=== PATIENT | female | born 1985 | race Caucasian/White ===

== ENCOUNTER 2017-11-17 07:15 | Emergency (ER) | END 2017-11-17 09:42 | disposition home or self-care (01) ==

== ENCOUNTER 2017-12-08 13:22 | Emergency (ER) | END 2017-12-08 15:05 | disposition home or self-care (01) ==

== ENCOUNTER 2017-12-26 06:49 | Emergency (ER) | END 2017-12-26 10:00 | disposition home or self-care (01) ==

== ENCOUNTER 2018-02-07 00:44 | Emergency (ER) | END 2018-02-07 04:10 | disposition home or self-care (01) ==

== ENCOUNTER 2018-07-04 02:45 | Emergency (ER) | payer MEDICAID ==
[~2018-07-04] VITALS: Wt 90.9 kg
[~2018-07-04 02:45] MED LIST: ACET500C5 PO; CIPR500T4 PO; FIORICET PO; METO10TA92 PO; NAPR-985 PO; NITR-58 PO; PREN-93 PO
--- NOTE | 2018-07-04 05:11 | ERD ---
ER Documentation Chief Complaint Chief Complaint right leg swelling x 4 days. denies trauma. states 29 weeks HPI 33yo 29 week F presents with complaint of Right leg swelling x 4 days. Patient denies recent trauma or injury, denies pain to the extremity. Pt denies any known medical conditions. States to be current on all care visits and has been uneventful thus far. Pt denies any recent long distance travel, immobility, chest pain, SOB, dizziness, or trouble ambulating. ROS All systems reviewed and are negative except as per history of present illness. Medications Home Meds Active Scripts Metoclopramide* (Reglan*) 10 Mg Tablet, 10 MG PO Q6 PRN for NAUSEA AND/OR VOMITING, #20 TAB Prov:TANIAILABABAK BLANCHARD 02/07/18 Vit No.124/Iron/FA ( Vitamin Tablet) 1 Each Tablet, 1 EACH PO DAILY, #30 TAB Prov:TANIAILABABAK BLANCHARD 02/07/18 Acetaminophen* (Tylophen*) 500 Mg Capsule, 1 CAP PO Q6H PRN for PAIN AND OR ELEVATED TEMP, #20 CAP Prov:PASILABANBABAK 02/07/18 Vit No.124/Iron/FA ( Vitamin Tablet) 1 Each Tablet, 1 EACH PO DAILY, #30 TAB Prov:BABAK GONZALEZ 12/26/17 Acetaminophen* (Tylophen*) 500 Mg Capsule, 1 CAP PO Q6H PRN for PAIN AND OR ELEVATED TEMP, #20 CAP Prov:TANIAILABABAK BLANCHARD 12/26/17 Nitrofurantoin Monohyd Macrocr* (Macrobid*) 100 Mg Capsr, 100 MG PO BID for 14 Days, CAP Prov:PASILABABAK BLANCHARD 12/26/17 Metoclopramide* (Reglan*) 10 Mg Tablet, 10 MG PO Q6 PRN for NAUSEA AND/OR VOMITING, #12 TAB Prov:KAREEM JACINTO PA-C 12/08/17 Acetaminophen* (Tylophen*) 500 Mg Capsule, 1 CAP PO Q6H PRN for PAIN AND OR ELEVATED TEMP, #30 CAP Prov:KAREEM JACINTO PA-C 12/08/17 Naproxen* (Naprosyn*) 500 Mg Tablet, 500 MG PO BID PRN for PAIN AND/OR INFLAMMATION, #30 TAB Prov:SALOME LOVETT PA-C 11/17/17 Acetamin/Butalbital/Caffeine* (Fioricet*) [id number] Tab, 1 TAB PO Q6H PRN for PAIN, #30 TAB Prov:SALOME LOVETT PA-C 11/17/17 Ciprofloxacin Hcl* (Ciprofloxacin Hcl*) 500 Mg Tablet, 500 MG PO BID for 10 Days, TAB Prov:SALOME LOVETT PA-C 11/17/17 Allergies Allergies: Coded Allergies: No Known Allergy (Unverified , 11/17/17) PMhx/Soc History of Surgery: Yes ( x2) Anesthesia Reaction: No Hx Neurological Disorder: No Hx Respiratory Disorders: No Hx Cardiac Disorders: No Hx Psychiatric Problems: No Hx Miscellaneous Medical Probl: No Hx Alcohol Use: No Hx Substance Use: No Hx Tobacco Use: No Smoking Status: Never smoker Physical Exam Vitals Vital Signs Date Temp Pulse Resp B/P (MAP) Pulse Ox O2 O2 Flow FiO2 Time Delivery Rate 07/04/18 98.1 64 17 106/55 97 Room Air 05:17 (72) 07/04/18 97.3 72 18 105/88 98 02:48 (94) Physical Exam General: alert, oriented X 3, no acute distress, well developed, well nourished, hydration normal Head/Eyes: atraumatic, normocephalic, PERRL, EOMI ENT: moist mucous membranes, normal pharynx Neck: supple/no meningismus, non-tender, full range of motion, no thyromegaly Respiratory: no distress, normal breath sounds, no accessory muscle use Cardio: regular rate and rhythm, normal heart sounds, no murmurs, rubs or gallops. Normal distal pulses. Abdomen: soft, non-tender, no guarding, no rebound, no hepatosplenomegaly. Extremities: Visible edema of the RLE with 2+ pitting. No warmth, no erythema, no calf or popliteal tenderness. Negative javier sign. DP pulse 2+, able to wiggle toes, full ROM of the knee and ankle. Able to bear weight to the affected extremity. Back: full range of motion, painless range of motion Skin: no rash, warm, dry Neurologic: alert, oriented X 3, CN II-XII intact, normal speech, no motor d eficits, no sensory deficits, reflexes equal bilat, normal gait Psychiatric: normal mood, normal affect Result Diagram: 07/04/183 07/04/18 0343 Results 24 hrs Laboratory Tests Test 07/04/18 03:43 White Blood Count 4.1 10^3/ul Red Blood Count 3.42 10^6/ul Hemoglobin 10.1 g/dl Hematocrit 30.3 % Mean Corpuscular Volume 88.6 fl Mean Corpuscular Hemoglobin 29.5 pg Mean Corpuscular Hemoglobin Concent 33.3 g/dl Red Cell Distribution Width 12.6 % Platelet Count 119 10^3/UL Mean Platelet Volume 12.6 fl Immature Granulocytes % 0.200 % Neutrophils % 56.2 % Lymphocytes % 33.6 % Monocytes % 8.3 % Eosinophils % 1.5 % Basophils % 0.2 % Nucleated Red Blood Cells % 0.0 /100WBC Immature Granulocytes # 0.010 10^3/ul Neutrophils # 2.3 10^3/ul Lymphocytes # 1.4 10^3/ul Monocytes # 0.3 10^3/ul Eosinophils # 0.1 10^3/ul Basophils # 0.0 10^3/ul Nucleated Red Blood Cells # 0.0 10^3/ul Prothrombin Time 12.3 Sec Prothrombin Time Ratio 1.0 INR International Normalized Ratio 0.90 Activated Partial Thromboplast Time 26.1 Sec Sodium Level 137 mmol/L Potassium Level 4.0 mmol/L Chloride Level 112 mmol/L Carbon Dioxide Level 21 mmol/L Anion Gap 4 Blood Urea Nitrogen 5 mg/dl Creatinine 0.50 mg/dl Est Glomerular Filtrat Rate mL/min > 60 mL/min Glucose Level 97 mg/dl Calcium Level 8.7 mg/dl Total Bilirubin 0.3 mg/dl Direct Bilirubin 0.00 mg/dl Indirect Bilirubin 0.3 mg/dl Aspartate Amino Transf (AST/SGOT) 20 IU/L Alanine Aminotransferase (ALT/SGPT) 27 IU/L Alkaline Phosphatase 211 IU/L Total Protein 5.7 g/dl Albumin 2.8 g/dl Globulin 2.90 g/dl Albumin/Globulin Ratio 0.96 Procedures/MDM PROCEDURE: US Lower extremity venous. CLINICAL INDICATION: Right lower extremity pain TECHNIQUE: Multiple sonographic images of the right lower extremity deep venous system obtained utilizing grayscale, color-flow, compressive sonography and doppler imaging with augmentation. The images were reviewed on a PACS workstation. COMPARISON: None. FINDINGS: There is normal compressibility and flow within the right common femoral, deep femoral, superficial femoral, posterior tibial, peroneal and popliteal veins. IMPRESSION: No sonographic evidence for deep venous thrombosis. MDM: This is a 29wk Female who presented to ED for evaluation of RLE edema. Patient was seen and examined, triage note and the nursing notes were reviewed. All imaging studies, and laboratory analysis were reviewed by me. VS noted. Patient is well-appearing, in no distress, neurovascularly intact, ambulatory with steady gait. Patient had lower extremity Doppler which was negative for DVT. Labs show no coagulopathy or elevated white count. Low suspici on for cellulitis, fracture, dislocation, Calles's cyst. Patient was reassured and urgent out-patient follow-up with [facility] within next 1-2 days was reinforced. Strict ED return precautions discussed, patient is to return at the onset or development of any new or worrisome symptoms. Patient is stable for discharge home at this time. Departure Diagnosis: Primary Impression: Edema during Trimester: third trimester Qualified Codes: O12.03 - Gestational edema, third trimester Ruled Out: DVT (deep vein thrombosis) in Condition: Stable Patient Instructions: Peripheral Edema, Unilateral Additional Instructions: Follow-up with certified [facility] administrator within next 1-2 days for management of swelling of the extremities during . TIMO JOHNS PA-C Jul 04, 2018 05:11
[2018-07-04 05:17] VITALS: BP 106/55; PULSE 64; RESP 17
== END 2018-07-04 05:17 | disposition home or self-care (01) ==
LOC: FTE 02:45
DX: O12.03 Gestational edema, third trimester (principal); M79.661 Pain in right lower leg; Z3A.29 29 weeks gestation of pregnancy
CPT/HCPCS: 80053; 85025; 85610; 85730; 93971; Z7502

== ENCOUNTER 2018-07-13 03:37 | Emergency (ER) | payer MEDICAID ==
[~2018-07-13] VITALS: Ht 157.5 cm; Wt 97.9 kg
[2018-07-13 03:38] VITALS: BP 121/62; PULSE 77; Ht 157.5 cm; Wt 97.9 kg
--- NOTE | 2018-07-13 04:26 | ERD ---
ER Documentation Chief Complaint Chief Complaint APPROX 8 MONTHS PREG; SOB WITH COUGH X2DAYS HPI 33-year-old female, currently at approximately 34 weeks, presents to the emergency department, complaining of sore throat and cough for 2 days. The patient denies fever, no chills, the cough is productive of yellowish sputum. Otherwise, in regards of her , the patient denies abdominal pain, no vaginal bleeding, refers adequate movements. ROS All systems reviewed and are negative except as per history of present illness. Medications Home Meds Active Scripts Inhaler, Assist Devices (Compact Space Chamber) 1 Each Spacer, EACH MC, #1 Prov:EARNESTINE KNIGHT MD 07/13/18 Cetirizine Hcl* (Zyrtec*) 10 Mg Capsule, 10 MG PO DAILY, #10 TAB.CHEW Prov:EARNESTINE KNIGHT MD 07/13/18 Albuterol Sulfate* (Proair HFA*) 8.5 Gm Hfa.aer.ad, 2 PUFF INH Q4, #1 INHALER Prov:EARNESTINE KNIGHT MD 07/13/18 Amoxicillin* (Amoxicillin*) 500 Mg Cap, 500 MG PO TID for 7 Days, CAP Prov:EARNESTINE KNIGHT MD 07/13/18 Metoclopramide* (Reglan*) 10 Mg Tablet, 10 MG PO Q6 PRN for NAUSEA AND/OR VOMITING, #20 TAB Prov:BABAK GONZALEZ F 02/07/18 Vit No.124/Iron/FA ( Vitamin Tablet) 1 Each Tablet, 1 EACH PO DAILY, #30 TAB Prov:PASILABABAK BLANCHARD F 02/07/18 Acetaminophen* (Tylophen*) 500 Mg Capsule, 1 CAP PO Q6H PRN for PAIN AND OR ELEVATED TEMP, #20 CAP Prov:PASILABANMILENAAR F 02/07/18 Vit No.124/Iron/FA ( Vitamin Tablet) 1 Each Tablet, 1 EACH PO DAILY, #30 TAB Prov:PASILABABAK BLANCHARD F 12/26/17 Acetaminophen* (Tylophen*) 500 Mg Capsule, 1 CAP PO Q6H PRN for PAIN AND OR ELEVATED TEMP, #20 CAP Prov:PASILABABAK BLANCHARD F 12/26/17 Nitrofurantoin Monohyd Macrocr* (Macrobid*) 100 Mg Capsr, 100 MG PO BID for 14 Days, CAP Prov:BABAK GONZALEZ 12/26/17 Metoclopramide* (Reglan*) 10 Mg Tablet, 10 MG PO Q6 PRN for NAUSEA AND/OR VOMITING, #12 TAB Prov:KAREEM JACINTO PA-C 12/08/17 Acetaminophen* (Tylophen*) 500 Mg Capsule, 1 CAP PO Q6H PRN for PAIN AND OR ELEVATED TEMP, #30 CAP Prov:KAREEM JACINTO PA-C 12/08/17 Naproxen* (Naprosyn*) 500 Mg Tablet, 500 MG PO BID PRN for PAIN AND/OR INFLAMMATION, #30 TAB Prov:SALOME LOVETT PA-C 11/17/17 Acetamin/Butalbital/Caffeine* (Fioricet*) [id number] Tab, 1 TAB PO Q6H PRN for PAIN, #30 TAB Prov:SALOME LOVETT PA-C 11/17/17 Ciprofloxacin Hcl* (Ciprofloxacin Hcl*) 500 Mg Tablet, 500 MG PO BID for 10 Days, TAB Prov:SALOME LOVETT PA-C 11/17/17 Allergies Allergies: Coded Allergies: No Known Allergy (Unverified , 07/13/18) PMhx/Soc History of Surgery: Yes ( x2) Anesthesia Reaction: No Hx Neurological Disorder: No Hx Respiratory Disorders: No Hx Cardiac Disorders: No Hx Psychiatric Problems: No Hx Miscellaneous Medical Probl: Yes (GESTATIONAL DM) Hx Alcohol Use: No Hx Substance Use: No Hx Tobacco Use: No Smoking Status: Never smoker FmHx Family History: diabetes Physical Exam Vitals Vital Signs Date Temp Pulse Resp B/P (MAP) Pulse Ox O2 O2 Flow FiO2 Time Delivery Rate 07/13/18 20 98 Room Air 04:59 07/13/18 98.7 77 19 121/62 98 03:38 (81) Physical Exam Const: No acute distress Head: Atraumatic Eyes: Normal Conjunctiva ENT: Normal External Ears, Nose and Mouth. Neck: Full range of motion. No meningismus. Resp: Mild rhonchi to auscultation bilaterally Cardio: Regular rate and rhythm, no murmurs Abd: Soft, uterus gravid, non tender, non distended. Normal bowel sounds Skin: No petechiae or rashes Back: No midline or flank tenderness Ext: No cyanosis, or edema Neur: Awake and alert Psych: Normal Mood and Affect Results 24 hrs Laboratory Tests Test 07/13/18 04:38 Bedside Urine pH (LAB) 6.0 Bedside Urine Protein (LAB) Negative Bedside Urine Glucose (UA) Negative Bedside Urine Ketones (LAB) Negative Bedside Urine Blood Trace-lysed Bedside Urine Nitrite (LAB) Negative Bedside Urine Leukocyte Esterase (L 3+ Procedures/MDM At the time of discharge, patient with nontoxic appearance, vital signs stable, no respiratory distress. Differential diagnosis include but not limited to: upper vs lower respiratory infection bacterial/viral/fungal. Asthma, COPD, pneumonitis, allergies, GERD. Less likely pulmonary embolism, cardiac related or malignancy, but still is a possibility. Physical examination and clinical presentation consistent most likely with viral infection with early superimposed bacterial infection. During the ED course the patient remained stable, no new complaints. Treatment options and clinical impression discussed with the patient who agrees with management. The patient is stable to be treated outpatient and will be discharged home. Some side effects of prescribed medications (headache, rash, nausea, vomiting, diarrhea, interactions with other medications) were reviewed. The patient needs to follow up with the primary care provider in the next 48h. If symptoms persist, worsen or new symptoms develop, then patient should return to the ED immediately. Disclaimer: Inadvertent spelling and grammatical errors are likely due to EHR/dictation software use and do not reflect on the overall quality of patient care. Also, please note that the electronic time recorded on this note does not necessarily reflect the actual time of the patient encounter. Each no patient indicates that he is just to have a like here is going to see her back myself kind Departure Diagnosis: Primary Impression: Cough Additional Impressions: Third trimester at less than 36 weeks UTI (urinary tract infection) Condition: Stable Patient Instructions: Understanding Urinary Tract Infections (UTIs) Additional Instructions: Muchas erika por [facility] para baldwin servicio. Esperamos que en baldwin visita a la neelima de emergencia baldwin problema medico haya sido solucionado y que se sienta mucho mejor. Para estar seguros que baldwin mejoria sigue en proceso, le pedimos el favor de hacer jeffy ronni de seguimiento medico con baldwin doctor primario en los proximos 2-4 oneill. Lleve con usted estos documentos y las medicinas recetadas. Si onesimo sintomas empeoran, NO SE ESPERE, por favor regrese a neelima de emergencia INMEDIATAMENTE. En kedar que usted no tenga un mdico de atencin primaria: Llame al mdico o clnica comunitaria de referencia que aparece abajo ally las horas de consultorio para hacer jeffy ronni para que le vean. CLINICAS: [facility] [phone] [facility] [address] [facility] [phone] [facility] [phone] [place] [id number] [phone] [place] [phone] [facility]. [phone] EARNESTINE MAYBERRY MD Jul 13, 2018 04:26
[2018-07-13] MEDS ORDERED: AMOX500C2 PO (04:36)
[2018-07-13] MEDS ORDERED: CETI10CA PO (04:36)
[2018-07-13] MEDS ORDERED: ALBU8.5H8 INH (04:36)
[2018-07-13] MEDS ORDERED: INHA-3 MC (04:37)
[2018-07-13 04:59] VITALS: RESP 20
== END 2018-07-13 05:01 | disposition home or self-care (01) ==
LOC: FTE 03:37
DX: O26.893 Other specified pregnancy related conditions, third trimester (principal); R05 Cough; O23.43 Unspecified infection of urinary tract in pregnancy, third trimester
CPT/HCPCS: 81003; Z7502; 99283

== ENCOUNTER 2018-07-13 05:10 | Inpatient (IN) | payer MEDICAID ==
[~2018-07-13] VITALS: Ht 157.5 cm; Wt 91.8 kg
[~2018-07-13 05:10] MED LIST changes: +ALBU8.5H8 INH; +AMOX500C2 PO; +CETI10CA PO; +INHA-3 MC
[2018-07-13 05:20] VITALS: BP 115/67; PULSE 73; RESP 17; Ht 157.5 cm; Wt 91.8 kg
[2018-07-13] MEDS ORDERED: NIFEdipine 10 MG CAP PO ONE (06:30)
--- NOTE | 2018-07-13 11:17 | TRIAGE ---
OB Triage Datetime Report Generated by CPN: 07/13/2018 11:17 Datetime: 07/13/2018 10:55 Stage of : Antepartum Labor Evaluation Frequency: 1-10 Monitor Mode: External Duration (sec)2399: 60 Pattern: Normal: <= 5 Contractions in 10 Minutes Resting Tone Redwood: Relaxed Heart Rate FHR Baseline Rate: 150 Variability: Moderate 6-25 bpm Accelerations: 15X15 Decelerations: None Category: Category I Pain Presence: None/Denies Pain Type: N/A Datetime: 07/13/2018 10:03 Stage of : OB Triage Labor Evaluation Frequency: 1-10 Monitor Mode: External Pattern: Normal: <= 5 Contractions in 10 Minutes Resting Tone Redwood: Relaxed Heart Rate FHR Baseline Rate: 145 Monitor Mode: External US Variability: Moderate 6-25 bpm Accelerations: 15X15 Decelerations: None Category: Category I Datetime: 07/13/2018 09:25 Stage of : OB Triage Labor Evaluation Frequency: 1-5 mnutes Monitor Mode: External Pattern: Normal: <= 5 Contractions in 10 Minutes Heart Rate FHR Baseline Rate: 155 Monitor Mode: External US Variability: Moderate 6-25 bpm Accelerations: 15X15 Decelerations: None Category: Category I Pain Presence: None/Denies Pain Type: N/A Datetime: 07/13/2018 09:03 Stage of : OB Triage Labor Evaluation Frequency: irregular Monitor Mode: External Duration (sec)2399: 60 Pattern: Normal: <= 5 Contractions in 10 Minutes Resting Tone Redwood: Relaxed Heart Rate FHR Baseline Rate: 155 Monitor Mode: External US Variability: Moderate 6-25 bpm Accelerations: 15X15 Decelerations: None Category: Category I Pain Presence: None/Denies Pain Type: N/A Datetime: 07/13/2018 08:07 Stage of : OB Triage Labor Evaluation Frequency: Q 5 Monitor Mode: External Duration (sec)2399: 80 Pattern: Normal: <= 5 Contractions in 10 Minutes Resting Tone Redwood: Relaxed Heart Rate FHR Baseline Rate: 145 Monitor Mode: External US Variability: Moderate 6-25 bpm Accelerations: 15X15 Decelerations: None Category: Category I Pain Presence: None/Denies Pain Type: N/A Datetime: 07/13/2018 07:46 Labor Evaluation Frequency: X1 Monitor Mode: External Duration (sec)2399: 80 Pattern: Normal: <= 5 Contractions in 10 Minutes Resting Tone Redwood: Relaxed Heart Rate FHR Baseline Rate: 150 Monitor Mode: External US Variability: Moderate 6-25 bpm Accelerations: 15X15 Decelerations: None Category: Category I Pain Presence: None/Denies Pain Type: N/A Datetime: 07/13/2018 07:34 Stage of : OB Triage Monitor Mode: External Comments: BACK ON MONITOR Pain Presence: None/Denies Pain Type: N/A Datetime: 07/13/2018 06:14 Labor Evaluation Frequency: 2-6 Monitor Mode: External Duration (sec)2399: 50-100 Quality: Mild Resting Tone Redwood: Relaxed Contraction Comments: pt denies feeling any contractions Heart Rate FHR Baseline Rate: 150 Monitor Mode: External US Variability: Moderate 6-25 bpm Accelerations: 15X15 Decelerations: None Category: Category I Pain Assessment Pain Scale: 0 Pain Presence: None/Denies Pain Type: N/A Datetime: 07/13/2018 06:06 Comments: MONITORS TEMPORARILY OFF FOR ULTRASOUND EXAM Datetime: 07/13/2018 05:54 Time of Arrival: 07/13/2018 05:06 EGA: 36.6 Arrived By: Wheelchair Arrived From: Emergency Dept Chief Complaint: Sent from ER cleared for SOB Movement: Present Contractions: Denies/Absent Rupture of Membranes: Denies Vaginal Bleeding: None Vaginal Discharge: Denies Recent Sexual Intercouse: Denies Abdominal Trauma: Not Applicable Patient Complaints: Other Additional Patient Complaints: hip pain since 1899 Time Provider Notified: 07/13/2018 05:06 Provider Notified: HADADIAN Initial Plan: VS, EFM, call OB Datetime: 07/13/2018 05:45 Vaginal Exam Dilatation (cms): 0.5 Station: -4 Exam By: STEPHANIE RN Membrane Status: Intact Vaginal Bleeding: None Cervix, Consistency: Soft Cervix, Position: Posterior Presentation 'A': Unable to Assess Datetime: 07/13/2018 05:20 Assessment Type: Triage Maternal Assessment Level of Consciousness: Fully Conscious DTR's/Clonus: DTRs 2+; No Clonus Headache: Denies Blurred Vision: No Respiratory Effort: Unlabored; Regular Rhythm; Equal Expansion Breath Sounds, Left: Clear and Equal Breath Sounds, Right: Clear and Equal Nausea/Vomiting: Denies RUQ Epigastric Pain: Denies Lower Extremities Edema: None Degree: None Upper Extremities Edema: None Degree: None Facial Edema: None Temperature Route: Oral Fall Risk Assessment History of Falling: (0) No Secondary Diagnosis: (0) No Ambulatory Aid: (0) Bedrest/Nurse Assist IV Therapy: (0) No Gait: (0) Normal/Bedrest/Immobile Mental Status: (0) Oriented to Own Ability Fall Score: 0 Fall Risk Score Definition: No Risk: No action required Pain Assessment Pain Scale: 0 Pain Presence: None/Denies Pain Type: N/A Datetime: 07/13/2018 05:15 Stage of : OB Triage Monitor Mode: External Monitor Mode: External US
[2018-07-13] MEDS ORDERED: HYDROCODONE/APAP (5/325) TAB PO ONE (11:30)
[2018-07-13] MEDS: AMOXICILLIN 500 MG CAP PO SCH ×2 (12:25→18:43)
[2018-07-13] MEDS: LACTATED RINGER'S 1,000 ML IV SCH ×2 (12:25→20:03)
[2018-07-13] MEDS: ALBUTEROL HFA 8 GM INHALER INH SCH ×3 (16:00→23:57)
[2018-07-13] MEDS: GUAIFENESIN/DM 5ML CUP PO PRN (18:43)
[2018-07-13] MEDS ORDERED: DIPHENHYDRAMINE 25 MG CAP PO PRN (21:00)
[2018-07-14] MEDS: GUAIFENESIN/DM 5ML CUP PO PRN ×2 (03:29→12:18)
[2018-07-14] MEDS: LACTATED RINGER'S 1,000 ML IV SCH (04:12)
[2018-07-14] MEDS: ALBUTEROL HFA 8 GM INHALER INH SCH ×4 (04:26→13:00)
[2018-07-14] MEDS: AMOXICILLIN 500 MG CAP PO SCH ×3 (06:00→12:18)
--- NOTE | 2018-07-14 10:32 | HP ---
Date/Time of Note Date/Time of Note DATE: 07/14/18 TIME: 10:21 OB - History Hx of Present Free Text/Dictation Late entry note. Patient seen on 07/13/2018 at 10:00 33 years old 4 para 2-0-1-2 with single intrauterine at 36 weeks and 6 days with TONA of 08/04/2018 seen at the emergency department for shortness of breath and cough, after management there, she referred to labor and delivery for well-being. Patient is complaining of irregular uterine contractions. She states good movement. She denies nausea, vomiting, shortness of breath, chest pain, headache, visual changes, vaginal bleeding or LOF. Risk factors: 1. A1 GDM 2. Marginal cord insertion Chief Complaint: Irregular uterine contractions, cough Estimated Due Date: August 04, 2018 : 4 Para: 2 Spontaneous : 1 Therapeutic : 0 Ultrasounds: Normal mid trimester US Obstetrical Complications: None Medical Complications: None Past Family/Social History * Past Medical, Surgical, Family and Obstetric Histories reviewed from chart. OB Admission Exam Vital Signs Vital Signs Vital Signs Date Temp Pulse Resp B/P (MAP) Pulse Ox O2 O2 Flow FiO2 Time Delivery Rate 07/13/18 98.1 73 17 115/67 Room Air 05:20 (83) Physical Exam Heart: Rhythm Normal Lungs: Clear Abdomen: WNL Extremities: Normal Reflexes: Normal Cervical Dilatation: Fingertip Effacement: 25% Station: -3 Membranes: Intact Heart Rate: 130's Accelerations: Accelerations Present Decelerations: No Decelerations Varibility: Moderate Intensity: Mild Last 72 hourBlood Glucose Bedside Glucose - 72 Hours Test 07/13/18 16:53 07/13/18 20:16 07/13/18 23:59 07/14/18 04:27 Bedside 92 90 85 93 Glucose mg/dL (70-220) mg/dL (70-220) mg/dL (70-220) mg/dL (70-220) Test 07/14/18 08:57 Bedside 85 Glucose mg/dL (70-220) OB Assessment/Plan Other plan: 33 years old 4 para 2-0-1-2 with A1 gestational diabetes, with marginal cord insertion at 36 weeks and 6 days with contractions and 2 previous delivery. She was admitted for close observation - FHR: No sign of metabolic acidosis- Category I - Continuous EFM, toco - CBC, blood type and screen - IVH - Please see the orders 2) A1 GDM: Check fasting blood sugar and 2 hours postprandial. Carb consistent diet 3) Marginal cord insertion: If uterine contraction resolved, continue antepartum testing ABIDA PRITCHETT July 14, 2018 10:32
--- NOTE | 2018-07-14 14:38 | PN ---
Date/Time of Note Date/Time of Note DATE: 07/14/18 TIME: 14:33 OB Subjective Subjective Subjective Patient seen and examined. She states good movement. She denies nausea, vomiting, shortness of breath, chest pain, abdominal pain between contractions, headache, visual changes, vaginal bleeding or LOF. OB Objective Objective Objective VS - Last 72 Hours, by Label Date Temp Pulse Resp B/P (MAP) Pulse Ox O2 O2 Flow FiO2 Time Delivery Rate 07/13/18 98.1 73 17 115/67 Room Air 05:20 (83) General: Patient appears well, alert and oriented, NAD, appropriate mood and affect ABD: gravid, soft, non-tender. Back: No CVA tenderness (B/L) LE: Mild edema. No clubbing, cyanosis, edema, thigh or calf tenderness bilaterally FHT: 135 bpm , moderate variability with acceleration, no deceleration-category I Contractions: None OB Assessment/Plan Other plan: 33 years old 4 para 2-0-1-2 with A1 gestational diabetes, with marginal cord insertion at 36 weeks and 6 days with contractions and 2 previous delivery. She was admitted for close observation. She states good movement. She denies nausea, vomiting, shortness of breath, chest pain, headache, visual changes, vaginal bleeding or LOF. FHR: No sign of metabolic acidosis- Category I. She has no uterine contractions. -Ultrasound performed: Normal DARIUS, BPP 8 out of 8. Symptoms and sign of labor, preeclampsia, kick count discussed with patient, she voiced understanding. All of her questions answered. Patient was discharged home in stable condition with the appropriate discharge instructions provided. I would like patient to have close follow-up with her primary physician or outpatient clinic in 1-2 days or return to triage for worsening symptoms or any other urgent concerns. 2) A1 GDM: Check fasting blood sugar and 2 hours postprandial. All blood sugar in hospital where within normal limits. Carb consistent diet discussed in detail with patient. 3) Marginal cord insertion: I did recommend continue APT ABIDA PRITCHETT July 14, 2018 14:38
--- NOTE | 2018-07-14 14:40 | DS ---
Date/Time of Note Date/Time of Note DATE: 07/14/18 TIME: 14:39 Obstetrical Discharge Record Final Diagnosis Final Diagnosis: Term not delivered Other Final Diagnosis 33 years old 4 para 2-0-1-2 with A1 gestational diabetes, with marginal cord insertion at 37 weeks with contractions and 2 previous delivery admitted for close observation yesterday. Currently denies nausea, vomiting, shortness of breath, chest pain, headache, visual changes, vaginal bleeding or LOF. FHR: No sign of metabolic acidosis- Category I. She has no uterine contractions. Ultrasound performed: Normal DARIUS, BPP 8 out of 8. Symptoms and sign of labor, preeclampsia, kick count discussed with patient, she voiced understanding. All of her questions answered. Patient was discharged home in stable condition with the appropriate discharge instructions provided. I would like patient to have close follow-up with her primary physician or outpatient clinic in 1-2 days or return to triage for worsening symptoms or any other urgent concerns. 2) A1 GDM: Check fasting blood sugar and 2 hours postprandial. All blood sugar in hospital where within normal limits. Carb consistent diet discussed in detail with patient. 3) Marginal cord insertion: I did recommend continue antepartum testing Condition on Discharge Physical Assessment Last Vitals: Vital Signs Date Temp Pulse Resp B/P (MAP) Pulse Ox O2 O2 Flow FiO2 Time Delivery Rate 07/13/18 98.1 73 17 115/67 Room Air 05:20 (83) Voiding: Yes Bowel Movement: Yes Calf Tenderness: No Patient Condition: Stable ABIDA PRITCHETT July 14, 2018 14:40
== END 2018-07-14 14:25 | disposition home or self-care (01) | DRG 833 ==
LOC: L-D 05:10 → OBT 05:10 → L-D 10:30 → OBT 11:25 → L-D 11:29
PROVIDERS: ADMIT Obstetrics & Gynecology; ATTEND Obstetrics & Gynecology
DX: O24.419 Gestational diabetes mellitus in pregnancy, unspecified control (principal); Z3A.36 36 weeks gestation of pregnancy
CPT/HCPCS: 76818; 82962; G0463; J7120

== ENCOUNTER 2018-07-28 05:43 | Inpatient (IN) | payer MEDICAID ==
[~2018-07-28] VITALS: Ht 160 cm; Wt 93.5 kg
[~2018-07-28 05:43] MED LIST changes: -ACET500C5 PO; -ALBU8.5H8 INH; -AMOX500C2 PO; -CETI10CA PO; -CIPR500T4 PO; -FIORICET PO; -METO10TA92 PO; -NAPR-985 PO; -NITR-58 PO; -PREN-93 PO
[2018-07-28 05:54] VITALS: Ht 160 cm; Wt 93.5 kg
[2018-07-28 05:58] VITALS: BP 135/79; PULSE 77; RESP 18
[2018-07-28] MEDS ORDERED: OXYTOCIN 30 UNITS/LR 500 ML IV PRN ×2 (06:00→16:00)
[2018-07-28] MEDS ORDERED: OXYTOCIN 30 UNITS/LR 500 ML IV SCH ×2 (06:00→15:47)
[2018-07-28] MEDS ORDERED: CARBOPROST 250 MCG INJ IM PRN ×2 (06:00→16:00)
[2018-07-28] MEDS ORDERED: CEFAZOLIN 2 GM/50 ML (PMX) 50 ML IVPB SCH (06:00)
[2018-07-28] MEDS ORDERED: METHYLERGONOVINE 0.2 MG INJ IM PRN ×2 (06:00→16:00)
[2018-07-28] MEDS ORDERED: MISOPROSTOL 200 MCG TAB PR PRN ×2 (06:00→16:00)
[2018-07-28] MEDS: LACTATED RINGER'S 1,000 ML IV SCH ×2 (06:26→09:43)
--- NOTE | 2018-07-28 07:18 | PREAC ---
Date/Time of Note Date/Time of Note DATE: 07/28/18 TIME: 07:17 Anesthesia Eval and Record Evaluation Time Pre-Procedure Interview DATE: 07/28/18 TIME: 07:17 Age 33 Sex female NPO: 8 hrs Preoperative diagnosis PREVIOUS C SECTION Planned procedure REPEAT C SECTION Past Medical History Past Medical History: Includes GI: Obesity : : (4), Para: (2) Surgery & Anesthesia Issues No known issue Meds Anticoagulation: No Beta Sterling within 24 hr: No Reason Beta Sterling not given: Pt. not on B-Sterling Active Scripts Inhaler, Assist Devices (Compact Space Chamber) 1 Each Spacer, EACH MC, #1 Prov:EARNESTINE KNIGHT MD 07/13/18 Current Medications Lactated Ringer's 1,000 ml @ 125 mls/hr Q8H IV Last administered on 07/28/18at 06:26; Admin Dose 125 MLS/HR; Start 07/28/18 at 05:55 Cefazolin Sodium/ Dextrose 50 ml @ 100 mls/hr ONCE IVPB ; Start 07/28/18 at 06:00 Oxytocin/Lactated Ringer's 500 ml @ 125 mls/hr POST IV ; Start 07/28/18 at 06:00 Oxytocin/Lactated Ringer's 500 ml @ 0 mls/hr ONCE PRN IV .VAGINAL BLEEDING; Start 07/28/18 at 06:00 Methylergonovine Maleate (Methergine) 0.2 mg ONCE PRN IM .VAGINAL BLEEDING; Start 07/28/18 at 06:00 Carboprost Tromethamine (Hemabate) 250 mcg ONCE PRN IM .VAGINAL BLEEDING; Start 07/28/18 at 06:00 Misoprostol (Cytotec) 1,000 mcg ONCE PRN RI .VAGINAL BLEEDING; Start 07/28/18 at 06:00 Meds reviewed: Yes Allergies Coded Allergies: No Known Allergy (Unverified , 07/13/18) Allergies Reviewed: Yes Labs/Studies Labs Reviewed: Reviewed by anesthesiologist test: N/A Pre-procedure Exam Last vitals Vital Signs Date Temp Pulse Resp B/P (MAP) Pulse Ox O2 O2 Flow FiO2 Time Delivery Rate 07/28/18 98.4 77 18 135/79 Room Air 05:58 (97) Airway: Adequate mouth opening, Adequate thyromental dist Mallampati: Mallampati II Teeth: Normal Lung: Normal Heart: Normal ASA Physical Status ASA physical status: 2 Emergency: None Planned Anesthetic Neuraxial: Spinal Planned Pain Management Sub-arachniod narcotics Pre-operative Attestations Prior to commencing anesthesia and surgery, the patient was re-evaluated, there was verification of: *The patient's identity *The results of appropriate recent lab work and preoperative vital signs *The above evaluation not changing prior to induction *Anesthetic plan, risk benefits, alternative and complications discussed with patient/family; questions answered; patient/family understands, accepts and wishes to proceed. Jh Hodgson M.D. July 28, 2018 07:18
[2018-07-28] MEDS ORDERED: ONDANSETRON 4 MG INJ IV STA (07:28)
[2018-07-28] MEDS ORDERED: CITRIC ACID/NA CITRATE 30 ML CUP PO ONE (07:30)
[2018-07-28] MEDS ORDERED: METOCLOPRAMIDE 10 MG INJ IV ONE (07:30)
[2018-07-28] MEDS ORDERED: FENTAnyl 50 MCG/ML VIAL ONE (08:01)
[2018-07-28] MEDS ORDERED: METOCLOPRAMIDE 10 MG INJ ONE (08:02)
[2018-07-28] MEDS ORDERED: OXYTOCIN 10 UNIT INJ ONE (08:02)
[2018-07-28] MEDS ORDERED: morphine SULFATE/PF (10 MG/10 ML) INJ ONE (08:02)
--- NOTE | 2018-07-28 08:10 | HP ---
Date/Time of Note Date/Time of Note DATE: 07/28/18 TIME: 08:05 OB - History Hx of Present Free Text/Dictation 33 years old G 5 [id number] with gestational diabetes A1 and previous delivery at 39 weeks with a TONA of 08/04/2018 admitted for repeat delivery. She states good movement. She denies nausea, vomiting, shortness of breath, chest pain, headache, visual changes, vaginal bleeding or LOF. Risk factors: -A1 gestational diabetes -Marginal cord insertion -Previous delivery x2 Chief Complaint: Scheduled for repeat delivery Estimated Due Date: August 04, 2018 : 4 Para: 2 Spontaneous : 1 Therapeutic : 0 Care: Good Care Ultrasounds: Normal mid trimester US Obstetrical Complications: Gestational Diabetes Medical Complications: None Past Family/Social History * Past Medical, Surgical, Family and Obstetric Histories reviewed from chart. Blood Type: O+ Rubella: immune RPR/VDRL: Negative GBS Status: Negative HBsAG: Negative OB Admission Exam Vital Signs Vital Signs Vital Signs Date Temp Pulse Resp B/P (MAP) Pulse Ox O2 O2 Flow FiO2 Time Delivery Rate 07/28/18 98.4 77 18 135/79 Room Air 05:58 (97) Physical Exam HEENT: WNL Heart: Rhythm Normal Lungs: Clear Abdomen: WNL Extremities: Normal Membranes: Intact Heart Rate: 140's Accelerations: Accelerations Present Decelerations: No Decelerations Varibility: Marked Contractions on Admission: None Last 72 hours Lab Results CBC & BMP 07/28/18 06:21 OB Assessment/Plan Other plan: 33 years old -0-1-2 with gestational diabetes A1, previous 2 delivery at 39 weeks scheduled for repeat delivery -FHR: No sign of metabolic acidosis- Category I -Continuous EFM, toco -CBC, blood type and screen -Analgesia options with R/B/A discussed in detail with patient -Epidural per patient request -Please see the orders -O+/Rubella: Immune -GBS: Negative The risk of delivery including but not limited to bleeding, infection, injury to other organs (bowel, bladder, ureter, vessels, nerves), injury to fetus, blood transfusion, blood transfusion related infection, risk of anesthesia, adhesion, needs for future , removal of uterus or any other indicated surgery was discussed with the patient and her family. She expressed understanding. All of her questions were answered. She signed the informed consent. PHYSICIAN'S VERIFICATION OF INFORMED CONSENT The patient was counseled regarding the procedure, its indications, risks, potential complications and alternatives and any questions were answered. Consent was obtained. PLANNED PROCEDURE/TREATMENT: delivery with possible using vacuum/forceps and any other indicated surgery PHYSICIAN'S VERIFICATION OF INFORMED CONSENT FOR BLOOD TRANSFUSION: There is a reasonable possibility that blood transfusion will be necessary as a result of the patient's procedure. I have discussed the following with the patient/patient's legal dental sales representative: An explanation of the benefits and risks of the transfusion of blood or blood products and the possible alternatives. All questions have been answered to the patient's satisfaction. INFORMED CONSENT:The patient has been informed of: The nature of the proposed care, treatment, services, medications, interventions or procedures. Potential benefits, risks or side effects, including potential problems related to recuperation. The likelihood of achieving care treatment and service goals. Reasonable alternatives to the proposed care, treatment and service. The relevant risks, benefits and side effects related to alternatives, including the possible results of not receiving care, treatment and services. When indicated, any limitations on the confidentiality of information learned from or about the patient. If appropriate, the risks, benefits and alternatives of the drugs to be used for sedation/analgesia including moderate sedation. If appropriate, patient has been provided information on the risks, benefits and alternatives to the transfusion of blood and/or blood products. If appropriate, patient has been provided information regarding the Shash[employer] Purcell Blood Act. ABIDA PRITCHETT July 28, 2018 08:10
[2018-07-28] MEDS ORDERED: TRIMETHOBENZAMIDE 100 MG/ML VIAL IM PRN ×2 (08:30)
[2018-07-28] MEDS ORDERED: ONDANSETRON 4 MG INJ IV PRN ×2 (08:30)
[2018-07-28] MEDS ORDERED: IPRATROPIUM (NEB) 0.5 MG/2.5 ML AMP HHN PRN (08:30)
[2018-07-28] MEDS ORDERED: ZOLPIDEM 5 MG TAB PO PRN (08:30)
[2018-07-28] MEDS ORDERED: KETOROLAC 30 MG INJ IV PRN (08:30)
[2018-07-28] MEDS ORDERED: DIPHENHYDRAMINE 50 MG INJ IV PRN ×2 (08:30)
[2018-07-28] MEDS ORDERED: FENTAnyl 50 MCG/ML VIAL IV PRN ×3 (08:30)
[2018-07-28] MEDS ORDERED: OXYCODONE/ACETAMINOPHEN (5/325) TAB PO PRN ×2 (08:30)
[2018-07-28] MEDS ORDERED: NALOXONE (0.4 MG/ML) INJ IV PRN (08:30)
[2018-07-28] MEDS ORDERED: LABETALOL HCL 20MG INJ IV PRN (08:30)
[2018-07-28] MEDS ORDERED: ALBUTEROL 0.083% (NEB) 2.5 MG/3 ML AMP HHN PRN (08:30)
[2018-07-28] MEDS ORDERED: NALBUPHINE HCL (10 MG/1 ML) INJ IV PRN (08:30)
[2018-07-28] MEDS ORDERED: MIDAZOLAM 1 MG/ML 2 ML INJ IV PRN (08:30)
[2018-07-28] MEDS ORDERED: morphine 2 MG INJ IV PRN ×2 (08:30)
[2018-07-28] MEDS ORDERED: hydrALAzine 20 MG INJ IV PRN (08:30)
[2018-07-28] MEDS ORDERED: EPHEDrine 25 MG/5 ML SYG IV PRN (08:30)
[2018-07-28] MEDS ORDERED: MEPERIDINE 25 MG INJ IV PRN (08:30)
[2018-07-28] MEDS ORDERED: HYDROmorphONE 1 MG/5 ML IV SYRINGE IV PRN ×3 (08:30)
--- NOTE | 2018-07-28 10:51 | OPR ---
Operative Report Planned Procedure Procedure date July 28, 2018 Procedure(s) Repeat low transverse delivery Performed by see signature line Aircraft Instrument Mechanic: REJI TERAN MD Anesthesiologist: Jh Hodgson M.D. Pre-procedure diagnosis 33 years old with gestational diabetes A1 and two previous delivery at 39 weeks desires repeat delivery [id number] Anesthesia Type: [id number] spinal Post-Procedure Post-procedure diagnosis 1. Single intrauterine at 39 weeks 2. Two previous delivery 3. A1 gestational diabetes 4. 5 cm window at the lower uterine segment. Findings 1. Normal uterus with 5 cm window at the lower uterine segment. Normal fallopian tubes and ovaries 2. Viable male in cephalic presentation. 9 at one minute and 9 in 5 minutes. Weight: 8 pounds 2 ounces. Time of delivery: 08:30 3. Placenta with three vessel cord 4. Amniotic fluid - Clear Estimated Blood Loss: 500 - 600 mls Specimen(s) none Grafts/Implant(s) none Complication(s) none Pt Condition post procedure: stable Disposition: PACU Procedure Description INDICATION AND HISTORY: A 33 years old with gestational diabetes A1 and two previous delivery at 39 weeks desires repeat delivery. The risk of delivery including but not limited to bleeding, infection, injury to other organs (bowel, bladder, ureter, vessels, nerves), injury to fetus, blood transfusion, blood transfusion related infection, risk of anesthesia, adhesion, needs for future , removal of uterus or any other indicated surgery was discussed with the patient and her family. She expressed understanding. All of her questions were answered. She signed the informed consent. DESCRIPTION OF OPERATION: The patient was taken to the operating room, where she was identified and the procedure was verified. The patient received two gram of Ancef 30 minutes prior to surgery. Spinal anesthesia was placed. The patient placed in the dorsal supine position with a left tilt. The heart rate was 134 bpm. The patient was then prepped and draped in the normal sterile fashion. A Pfannenstiel skin incision was made and carried down to the fascia with knife. The fascia was incised in the midline and the fascial incision was carried laterally with Hernandez scissors. The superior portion of the fascial incision was then grasped with Danish clamps and tented up and dissected off the underlying rectus muscle with sharp dissection. The lower portion of the fascial incision was then made in a similar fashion. The rectus muscle was and the peritoneum was entered. The peritoneal incision was then stretched and a bladder blade was inserted. The utero-vesical peritoneal reflection was incised transversely and the bladder flap was reflected inferiorly. As noted above there was 5 cm window on lower uterine segment. Then, an incision was made above the window in the lower uterine segment in a transverse fashion with a knife and extended bluntly. The was delivered by vacuum to assist delivery of head, atraumatically in cephalic presentation with the above findings. The umbilical cord was clamped and cut. The neonatology resuscitation team was present and the baby was handed to them. A cord blood sample was obtained for further evaluation. The placenta and membrane, which appeared normal were Removed. The uterus was exteriorized and cleared of all clot and debris. The uterus was then closed in a two layer fashion with 0- Monocryl. At the time of closure, hemostasis was noted. The gutters were irrigated. The peritoneum was reapproximated with 3-0 Vicryl. The muscle was reapproximated with 3-0 Vicryl. The fascia was approximated with 0-Vicryl in a running fashion. The subcutaneous tissue was re approximated with 3-0 vicryl. The skin was closed with 4-0 Monocryl. All instruments, sponges and needle counts were correct x3. The patient tolerated the procedure well. She transferred to the recovery room in stable condition. . ABIDA PRITCHETT July 28, 2018 10:49
--- NOTE | 2018-07-28 11:20 | PAC ---
Date/Time of Note Date/Time of Note DATE: 07/28/18 TIME: 11:20 Post-Anesthesia Notes Post-Anesthesia Note Last documented vital signs Vital Signs Date Temp Pulse Resp B/P (MAP) Pulse Ox O2 O2 Flow FiO2 Time Delivery Rate 07/28/18 98.4 77 18 135/79 Room Air 05:58 (97) Activity: WNL Respiratory function: WNL Cardiovascular function: WNL Mental status: Baseline Pain reasonably controlled: Yes Hydration appropriate: Yes Nausea/Vomiting absent: Yes Jh Hodgson M.D. July 28, 2018 11:20
[2018-07-28 15:45] VITALS: BP 135/75; PULSE 65; RESP 20
[2018-07-28] MEDS: DEXTROSE 5%-LR 1,000 ML IV SCH ×2 (15:47→20:59)
[2018-07-28] MEDS ORDERED: LANOLIN HPA 1 PKT TOP PRN (16:00)
[2018-07-28] MEDS ORDERED: MAGNESIUM HYDROXIDE 30ML CUP PO PRN (16:00)
[2018-07-28] MEDS ORDERED: METHYLERGONOVINE 0.2 MG TAB PO PRN (16:00)
[2018-07-28 16:45] VITALS: BP 132/68; PULSE 68; RESP 20
[2018-07-28 20:36] VITALS: BP 109/55; PULSE 70; RESP 18
[2018-07-28] MEDS: SENNA/DOCUSATE NA (8.6MG/50MG) TAB PO SCH (21:00)
[2018-07-29] VITALS: BP 107/57; PULSE 66; RESP 19
[2018-07-29 04:00] VITALS: BP 102/56; PULSE 72; RESP 18
[2018-07-29] MEDS: DEXTROSE 5%-LR 1,000 ML IV SCH ×3 (04:33→23:47)
[2018-07-29 08:40] VITALS: BP 102/58; PULSE 73; RESP 16
[2018-07-29] MEDS: SENNA/DOCUSATE NA (8.6MG/50MG) TAB PO SCH ×2 (09:31→21:59)
[2018-07-29] MEDS ORDERED: DIPHTH/TET/ACEL PERTUSS (ADULT) 0.5 ML VIAL IM* ONE ×2 (11:00→18:30)
[2018-07-29] MEDS ORDERED: HYDROCODONE/APAP (5/325) TAB NGT PRN (11:00)
[2018-07-29] MEDS ORDERED: HYDROCODONE/APAP (5/325) TAB PO PRN (11:00)
--- NOTE | 2018-07-29 12:31 | PN ---
Date/Time of Note Date/Time of Note DATE: 07/29/18 TIME: 12:25 OB Subjective Subjective Subjective Pain well-controlled with p.o. pain medication. Breast-feeding. Passed flatus. Tolerated clear liquid diet. Has not been ambulated yet. Complaining of some cough. OB Objective Objective Objective GA: A&O, NAD Abdomen, Soft. approrpriate appropriate tendernes in the incision. Incision: Clean dry and intact. Lungs: Clear to auscultation bilaterally Extremities: No calf tenderness, no click no edema no cord palpable VS - Last 72 Hours, by Label Date Temp Pulse Resp B/P (MAP) Pulse Ox O2 O2 Flow FiO2 Time Delivery Rate 07/29/18 97.7 73 16 102/58 97 Room Air 08:40 (73) 07/29/18 98.2 72 18 102/56 97 Room Air 04:00 (71) 07/29/18 98.5 66 19 107/57 97 Room Air 00:00 (74) 07/28/18 98.1 70 18 109/55 95 Room Air 20:36 (73) 07/28/18 98.3 68 20 132/68 97 Room Air 16:45 (89) 07/28/18 98.4 65 20 135/75 98 Room Air 15:45 (95) 07/28/18 98.4 77 18 135/79 Room Air 05:58 (97) Laboratory Tests Test 07/29/18 06:26 07/29/18 06:58 Lab Scanned Report REFERENCE LAB White Blood Count 4.7 L Red Blood Count 3.08 L Hemoglobin 8.6 L Hematocrit 26.9 L Mean Corpuscular Volume 87.3 Mean Corpuscular Hemoglobin 27.9 L Mean Corpuscular Hemoglobin Concent 32.0 Red Cell Distribution Width 13.7 Platelet Count 80 #L Mean Platelet Volume 13.4 H Immature Granulocytes % 0.400 Neutrophils % 76.6 Lymphocytes % 17.3 Monocytes % 4.9 Eosinophils % 0.6 Basophils % 0.2 Nucleated Red Blood Cells % 0.0 Immature Granulocytes # 0.020 Neutrophils # 3.6 Lymphocytes # 0.8 Monocytes # 0.2 L Eosinophils # 0.0 Basophils # 0.0 Nucleated Red Blood Cells # 0.0 OB Assessment/Plan Other Assessment: Status post elective repeat section Thrombocytopenia noted, likely gestational, initial platelet 109 dropped to 80, exacerbated likely by IV fluid and delusional Anemia, postop as well as pre-gestational anemia asymptomatic, doing well. Patient is asymptomatic Occasional cough, unclear etiology. likely related to GERD. Lungs clear to auscultation, afebrile. Oxygen saturation normal GDM, A1, diet-controlled Continue repeat routine postop care Follow-up with CBC tomorrow Patient needs to have glucose tolerance test at 6 weeks Start iron with with Colace twice daily LAURA HERNANDEZ MD July 29, 2018 12:31
[2018-07-29] MEDS: HYDROCODONE/APAP (5/325) TAB PO SCH ×2 (12:35→21:59)
[2018-07-29] MEDS ORDERED: HYDROCODONE/APAP (5/325) TAB GTB SCH (14:00)
[2018-07-29] MEDS ORDERED: GUAIFENESIN 20 MG/ML 5ML CUP PO PRN (14:30)
[2018-07-29] MEDS: IBUPROFEN 800 MG TAB PO SCH ×2 (14:45→21:59)
[2018-07-29] MEDS: POLYSACCHARIDE IRON COMPLEX CAP PO SCH ×2 (15:02→21:59)
[2018-07-29] MEDS: DOCUSATE SODIUM 100 MG CAP PO SCH ×2 (15:02→21:58)
[2018-07-29] MEDS: GUAIFENESIN 20 MG/ML 5ML CUP PO PRN (15:03)
[2018-07-29 16:45] VITALS: BP 105/70; PULSE 70; RESP 18
[2018-07-29 21:00] VITALS: BP 105/66; PULSE 70; RESP 18
[2018-07-30 04:00] VITALS: BP 108/59; PULSE 17; RESP 17
[2018-07-30] MEDS: IBUPROFEN 800 MG TAB PO SCH ×3 (05:46→21:55)
[2018-07-30] MEDS: HYDROCODONE/APAP (5/325) TAB PO SCH ×3 (05:47→21:55)
[2018-07-30] MEDS: DEXTROSE 5%-LR 1,000 ML IV SCH ×3 (06:35→23:47)
[2018-07-30 08:30] VITALS: BP 103/61; PULSE 66; RESP 19
[2018-07-30] MEDS: SENNA/DOCUSATE NA (8.6MG/50MG) TAB PO SCH ×2 (09:28→20:47)
[2018-07-30] MEDS: DOCUSATE SODIUM 100 MG CAP PO SCH ×2 (09:28→20:47)
[2018-07-30] MEDS: POLYSACCHARIDE IRON COMPLEX CAP PO SCH ×2 (09:28→20:47)
--- NOTE | 2018-07-30 11:34 | QN ---
Documentation Comment Postop day #2 Status post primary for severe preeclampsia Patient stable and afebrile Vital signs stable VS - Last 72 Hours, by Label Date Temp Pulse Resp B/P (MAP) Pulse Ox O2 O2 Flow FiO2 Time Delivery Rate 07/30/18 98.3 66 19 103/61 Room Air 08:30 (75) 07/30/18 98.3 17 17 108/59 Room Air 04:00 (75) 07/29/18 98.0 70 18 105/66 Room Air 21:00 (79) 07/29/18 98.3 70 18 105/70 Room Air 16:45 (82) 07/29/18 97.7 73 16 102/58 97 Room Air 08:40 (73) 07/29/18 98.2 72 18 102/56 97 Room Air 04:00 (71) 07/29/18 98.5 66 19 107/57 97 Room Air 00:00 (74) 07/28/18 98.1 70 18 109/55 95 Room Air 20:36 (73) 07/28/18 98.3 68 20 132/68 97 Room Air 16:45 (89) 07/28/18 98.4 65 20 135/75 98 Room Air 15:45 (95) 07/28/18 98.4 77 18 135/79 Room Air 05:58 (97) Hematology - 72 Hrs Test 07/28/18 06:21 07/29/18 06:58 07/30/18 07:31 Hematocrit 31.4 % (37.0-47.0) 26.9 % (37.0-47.0) 26.0 % (37.0-47.0) L L L Hemoglobin 10.2 8.6 8.4 g/dl (12.0-16.0) L g/dl (12.0-16.0) g/dl (12.0-16.0) L L Mean Corpuscular 28.5 pg (29.0-33.0) 27.9 28.6 Hemoglobin L pg (29.0-33.0) L pg (29.0-33.0) L Mean Corpuscular 32.5 32.0 32.3 Hemoglobin Concent g/dl (32.0-37.0) g/dl (32.0-37.0) g/dl (32.0-37.0) Mean Corpuscular 87.7 87.3 88.4 Volume fl (82.0-101.0) fl (82.0-101.0) fl (82.0-101.0) Mean Platelet fl (7.4-10.4) 13.4 fl (7.4-10.4) 13.6 fl (7.4-10.4) Volume H H Platelet Count 109 80 96 10^3/UL (140-415) 10^3/UL (140-415) 10^3/UL (140-415) L #L L Red Blood Count 3.58 3.08 2.94 10^6/ul (4.20-5.40) 10^6/ul (4.20-5.40 10^6/ul (4.20-5.40 L ) L ) L Red Cell 13.3 % (11.5-14.5) 13.7 % (11.5-14.5) 13.8 % (11.5-14.5) Distribution Width White Blood Count 4.0 4.7 4.6 10^3/ul (4.8-10.8) 10^3/ul (4.8-10.8) 10^3/ul (4.8-10.8) L L L Abdomen soft, fundus firm Incision clean,dry,intact Extremities nontender Assessment and plan Patient stable and doing well Encouraged to ambulate Continue with routine postop care REJI TERAN MD July 30, 2018 11:34
[2018-07-30 15:42] VITALS: BP 124/64; PULSE 63; RESP 18
[2018-07-30 19:30] VITALS: BP 109/67; PULSE 73; RESP 20
[2018-07-30] MEDS: GUAIFENESIN 20 MG/ML 5ML CUP PO PRN (20:47)
[2018-07-31 04:10] VITALS: BP 108/58; PULSE 65; RESP 20
[2018-07-31] MEDS: IBUPROFEN 800 MG TAB PO SCH ×2 (05:45→13:19)
[2018-07-31] MEDS: HYDROCODONE/APAP (5/325) TAB PO SCH ×2 (05:46→13:19)
[2018-07-31] MEDS: DEXTROSE 5%-LR 1,000 ML IV SCH (07:47)
[2018-07-31 08:30] VITALS: BP 115/59; PULSE 70; RESP 17
[2018-07-31] MEDS ORDERED: MEASLES,MUMPS,RUBELLA VACCINE INJ SC* ONE (09:00)
[2018-07-31] MEDS ORDERED: DIPHTH/TET/ACEL PERTUSS (ADULT) 0.5 ML VIAL IM* ONE ×2 (09:00→11:00)
[2018-07-31] MEDS: POLYSACCHARIDE IRON COMPLEX CAP PO SCH (10:05)
[2018-07-31] MEDS: SENNA/DOCUSATE NA (8.6MG/50MG) TAB PO SCH (10:06)
[2018-07-31] MEDS: DOCUSATE SODIUM 100 MG CAP PO SCH (10:06)
--- NOTE | 2018-07-31 12:06 | QN ---
Documentation Comment Postop day #3 Status pos repeat Patient stable and afebrile Patient is ambulating, tolerating regular diet, voiding and positive flatus Vital signs stable VS - Last 72 Hours, by Label Date Temp Pulse Resp B/P (MAP) Pulse Ox O2 O2 Flow FiO2 Time Delivery Rate 07/31/18 97.9 70 17 115/59 Room Air 08:30 (77) 07/31/18 98.4 65 20 108/58 Room Air 04:10 (75) 07/30/18 98.0 73 20 109/67 Room Air 19:30 (81) 07/30/18 98.2 63 18 124/64 Room Air 15:42 (84) 07/30/18 98.3 66 19 103/61 Room Air 08:30 (75) 07/30/18 98.3 17 17 108/59 Room Air 04:00 (75) 07/29/18 98.0 70 18 105/66 Room Air 21:00 (79) 07/29/18 98.3 70 18 105/70 Room Air 16:45 (82) 07/29/18 97.7 73 16 102/58 97 Room Air 08:40 (73) 07/29/18 98.2 72 18 102/56 97 Room Air 04:00 (71) 07/29/18 98.5 66 19 107/57 97 Room Air 00:00 (74) 07/28/18 98.1 70 18 109/55 95 Room Air 20:36 (73) 07/28/18 98.3 68 20 132/68 97 Room Air 16:45 (89) 07/28/18 98.4 65 20 135/75 98 Room Air 15:45 (95) Hematology - 72 Hrs Test 07/29/18 06:58 07/30/18 07:31 Hematocrit 26.9 % (37.0-47.0) L 26.0 % (37.0-47.0) L Hemoglobin 8.6 g/dl (12.0-16.0) L 8.4 g/dl (12.0-16.0) L Mean Corpuscular 27.9 pg (29.0-33.0) L 28.6 pg (29.0-33.0) L Hemoglobin Mean Corpuscular 32.0 g/dl (32.0-37.0) 32.3 g/dl (32.0-37.0) Hemoglobin Concent Mean Corpuscular Volume 87.3 fl (82.0-101.0) 88.4 fl (82.0-101.0) Mean Platelet Volume 13.4 fl (7.4-10.4) H 13.6 fl (7.4-10.4) H Platelet Count 80 10^3/UL (140-415) #L 96 10^3/UL (140-415) L Red Blood Count 3.08 10^6/ul (4.20-5.40) 2.94 10^6/ul (4.20-5.40) L L Red Cell Distribution 13.7 % (11.5-14.5) 13.8 % (11.5-14.5) Width White Blood Count 4.7 10^3/ul (4.8-10.8) L 4.6 10^3/ul (4.8-10.8) L Abdomen soft, fundus firm Incision clean, dry, intact Extremities nontender Assessment and plan Patient stable and doing well Plan to discharge home Patient instructed to follow-up with her own CANAL EQUIPMENT MECHANIC in 2 and 6 weeks REJI TERAN MD July 31, 2018 12:06
--- NOTE | 2018-07-31 12:07 | DS ---
Date/Time of Note Date/Time of Note DATE: 07/31/18 TIME: 12:06 Obstetrical Discharge Record Final Diagnosis Final Diagnosis: Term delivered Other Final Diagnosis Postop day #3 Status pos repeat Patient stable and afebrile Patient is ambulating, tolerating regular diet, voiding and positive flatus Vital signs stable Abdomen soft, fundus firm Incision clean, dry, intact Extremities nontender Assessment and plan Patient stable and doing well Plan to discharge home Patient instructed to follow-up with her own RELOCATION COUNSELOR in 2 and 6 weeks Section Section: Repeat Condition on Discharge Physical Assessment Last Vitals: VS - Last 72 Hours, by Label Date Temp Pulse Resp B/P (MAP) Pulse Ox O2 O2 Flow FiO2 Time Delivery Rate 07/31/18 97.9 70 17 115/59 Room Air 08:30 (77) 07/31/18 98.4 65 20 108/58 Room Air 04:10 (75) 07/30/18 98.0 73 20 109/67 Room Air 19:30 (81) 07/30/18 98.2 63 18 124/64 Room Air 15:42 (84) 07/30/18 98.3 66 19 103/61 Room Air 08:30 (75) 07/30/18 98.3 17 17 108/59 Room Air 04:00 (75) 07/29/18 98.0 70 18 105/66 Room Air 21:00 (79) 07/29/18 98.3 70 18 105/70 Room Air 16:45 (82) 07/29/18 97.7 73 16 102/58 97 Room Air 08:40 (73) 07/29/18 98.2 72 18 102/56 97 Room Air 04:00 (71) 07/29/18 98.5 66 19 107/57 97 Room Air 00:00 (74) 07/28/18 98.1 70 18 109/55 95 Room Air 20:36 (73) 07/28/18 98.3 68 20 132/68 97 Room Air 16:45 (89) 07/28/18 98.4 65 20 135/75 98 Room Air 15:45 (95) Voiding: Yes Bowel Movement: Yes Breast: Soft, non-tender Fundus: Firm Calf Tenderness: No Patient Condition: Good Copies To: CC: ABIDA PRITCHETT BAHAREH MD July 31, 2018 12:07
--- NOTE | 2018-08-01 16:49 | DELSUM ---
Delivery Summary A-C Datetime Report Generated by CPN: 08/01/2018 16:49 DELIVERY PERSONNEL Dietitian Chief: BRAD, ABHILASH MATERNAL INFORMATION Delivery Anesthesia: Spinal Medications in Delivery: see Anesthesia Flowsheet Delivery QBL (ml): 500 Placenta Cultured: No Maternal Complications: None LABOR SUMMARY EDC: 08/04/2018 00:00 No. Babies in Womb: 1 Attempted: No Labor Anesthesia: Intrathecal LABOR INFORMATION Reason for Induction: Not Applicable Oxytocin: N/A Group B Beta Strep: Positive (Annotations: IN URINE) Antibiotics # of Doses: 1 Antibiotics Time of Last Dose: 07/28/2018 08:03 Steroids Given: None Reason Steroids Not Administered: Not Applicable MEMBRANES Membranes Rupture Method: Artificial Rupture of Membranes: 07/28/2018 08:38 Length of Rupture (hr): 0.03 Amniotic Fluid Color: Clear Amniotic Fluid Amount: Large Amniotic Fluid Odor: None STAGES OF LABOR Stage 3 hr: 0 Stage 3 min: -2 CSECTION DELIVERY Primary Indication: Repeat Elective Secondary Indication: N/A CSection Urgency: Elective CSection Incidence: Repeat Labor: No Labor Elective: Elective CSection Incision: Lower Uterine Transverse BABY A INFORMATION Delivery Date/Time: 07/28/2018 08:40 Method of Delivery: Born in Route : No : N/A Forceps: N/A Vacuum Extraction: Successful Shoulder Dystocia : N/A ASSISTED DELIVERY BABY A Catheter Prior to Procedure: Yes Vacuum Number of Pulls: 2 Vacuum Number of PopOffs: 1 Vacuum Maximum Pressure Obtained: 20 Vacuum Eviction Specialist: [employer] Total Time Vacuum Applied: 10 SECONDS SHOULDER DYSTOCIA BABY A Delivery Date/Time: 07/28/2018 08:40 PRESENTATION/POSITION BABY A Presentation: Cephalic Cephalic Presentation: Vertex Vertex Position: Left Occipital Anterior Breech Presentation: N/A PLACENTA INFORMATION BABY A Placenta Delivery Time : 07/28/2018 08:38 Placenta Method of Delivery: Manual Removal Placenta Status: Delivered SCORES BABY A Heart Rate 1 min: >100 bpm Resp Effort 1 min: Good Cry Reflex Irritability 1 min: Cough/Sneeze/Pulls Away Muscle Tone 1 min: Active Motion Color 1 min: Body Destrehan, Extremit Blue Resuscitation Effort 1 min: Tactile Stimulation SCORE 1 MIN: 9 Heart Rate 5 min: >100 bpm Resp Effort 5 min: Good Cry Reflex Irritability 5 min: Cough/Sneeze/Pulls Away Muscle Tone 5 min: Active Motion Color 5 min: Body Destrehan, Extremit Blue Resuscitation Effort 5 min: Tactile Stimulation SCORE 5 MIN: 9 INFANT INFORMATION BABY A Gestational Age at Delivery: 39.0 Gestational Status: Full Term- 39- 40.6 Weeks Infant Outcome : Liveborn Condition : Stable Sex: Male IDENTIFICATION/MEDS BABY A ID Band Number: [id number] ID Band Location: Right Leg; Left Arm Sensor Applied: Yes Sensor Number: [id number] Sensor Location : Cord Clamp Vitamin K Given : Not Given Erythromycin Given: Not Given WEIGHT/LENGTH BABY A Birthweight (gm): 3695 Weight (lb): 8 Weight (oz): 2 Infant Length (in): 20.50 Length (cm): 52.07 CORD INFORMATION BABY A No. Cord Vessels: 3 Nuchal Cord : N/A Cord Blood Taken: Yes Infant Suction: Mouth; Nose
== END 2018-07-31 16:48 | disposition home or self-care (01) | DRG 788 ==
LOC: L-D 05:43 → PP1 15:22 → EDSTATUS 08-04 04:16
PROVIDERS: ADMIT Obstetrics & Gynecology; ATTEND Obstetrics & Gynecology
PROC: 10D00Z1 Extraction of Products of Conception, Low, Open Approach (ICD-10-PCS; principal; 2018-07-28 07:30)
DX: O65.5 Obstructed labor due to abnormality of maternal pelvic organs (principal); O34.211 Maternal care for low transverse scar from previous cesarean delivery; O24.429 Gestational diabetes mellitus in childbirth, unspecified control; Z3A.39 39 weeks gestation of pregnancy; Z37.0 Single live birth
CPT/HCPCS: 82962; 85025; 85610; 85730; 86592; 86850; 86900; 86901; 87340; 90715; 99464; J0690; J1885; J2274; J2405; J2590; J2765; J3010; J7120; J7121